=== PATIENT | female | born 1980 | race Caucasian/White ===

== ENCOUNTER 2018-01-10 21:47 | Emergency (ER) | payer BC ==
[~2018-01-10] VITALS: Ht 157.5 cm; Wt 83.9 kg
[~2018-01-10 21:47] MED LIST: BUPROPION XL300 MG PO; DHA100 MG PO; OMEPRAZOLE20 MG PO; PRENATAL TABLE1 EAC1 PO; ZANTAC150 MG PO
[2018-01-10] MEDS ORDERED: BACTRIM DS TAB1 EACH PO (22:13)
[2018-01-10] MEDS ORDERED: DEXAMETHASONE4 MG PO (22:13)
[2018-01-10] MEDS ORDERED: ACETAMINOPHEN-1 EAC1 PO (22:13)
== END 2018-01-10 22:50 | disposition home or self-care (01) ==
LOC: ED 21:47
DX: T81.4XXA Infection following a procedure, initial encounter (principal); J32.9 Chronic sinusitis, unspecified; Z88.1 Allergy status to other antibiotic agents; Z79.899 Other long term (current) drug therapy
CPT/HCPCS: 99282

== ENCOUNTER 2018-04-28 21:39 | Emergency (ER) | payer BC ==
[~2018-04-28] VITALS: Ht 157.5 cm; Wt 85.7 kg
[~2018-04-28 21:39] MED LIST changes: +ACETAMINOPHEN-1 EAC1 PO; +BACTRIM DS TAB1 EACH PO; +DEXAMETHASONE4 MG PO
[2018-04-28] MEDS ORDERED: CYCLOBENZAPRINE10 MG PO (21:45)
[2018-04-28] MEDS ORDERED: MOBIC7.5 MG PO (21:45)
--- OUTSIDE RECORDS SUMMARY | 2018-04-28 21:55 | XMS | Clinical Summary ---
Demographics + + + | Address | [address] | | | [place] [address] | + + + | Preferred Language | Unknown | + + + | Marital Status | Unknown | + + + | Anabaptist Affiliation | Unknown | + + + | Race | Unknown | + + + | Ethnic Group | Unknown | + + + Author + + + | Author | [employer] | + + + | Organization | [facility] | + + + | Address | Unknown | + + + | Phone | Unavailable | + + + Care Team Providers + +------+ + | Care Chief Accounting Officer Name | Role | Phone | + +------+ + PP | Unavailable | + +------+ + Allergies Not on File Current Medications Not on file Active Problems Not on file Social History + +-------+ +--------+------+ | Tobacco Use | Types | Packs/Day | Years | Date | | | | | Used | | + +-------+ +--------+------+ | Never Assessed | | | | | + +-------+ +--------+------+ + + + | Sex Assigned at | Date Recorded | | | | + + + | Not on file | | + + + Plan of Treatment Not on file Results Not on filefrom Last 3 Months"
--- OUTSIDE RECORDS SUMMARY | 2018-04-28 21:55 | XMS | Clinical Summary ---
Demographics + + + | Address | [address] | | | [place] [address] | + + + | Preferred Language | Unknown | + + + | Marital Status | Unknown | + + + | Muslim Affiliation | Unknown | + + + | Race | Unknown | + + + | Ethnic Group | Unknown | + + + Author + + + | Author | [employer] | + + + | Organization | [facility] | + + + | Address | Unknown | + + + | Phone | Unavailable | + + + Care Team Providers + +------+ + | Care Nuclear Fuels Research Engineer Name | Role | Phone | + [...]
[2018-04-28] MEDS ORDERED: AMOXICILLIN875 MG PO ×2 (22:04→22:07)
== END 2018-04-28 22:31 | disposition home or self-care (01) ==
LOC: ED 21:39
DX: H66.91 Otitis media, unspecified, right ear (principal); Z88.1 Allergy status to other antibiotic agents; Z79.899 Other long term (current) drug therapy
CPT/HCPCS: 99282

== ENCOUNTER 2021-10-13 20:16 | Emergency (ER) | payer OTHER ==
[~2021-10-13] VITALS: Ht 157.5 cm; Wt 99.8 kg
[~2021-10-13 20:16] MED LIST changes: +AMOXICILLIN875 MG PO; +CYCLOBENZAPRINE10 MG PO; +MOBIC7.5 MG PO
[2021-10-13] MEDS ORDERED: CITALOPRAM HBR10 MG PO (21:09)
== END 2021-10-14 00:03 | disposition home or self-care (01) ==
LOC: ED 20:16
DX: R10.11 Right upper quadrant pain (principal); R10.31 Right lower quadrant pain; M79.604 Pain in right leg; Z88.1 Allergy status to other antibiotic agents; Z79.899 Other long term (current) drug therapy
CPT/HCPCS: 36415; 74177; 80053; 81001; 83690; 84703; 85025; 93971; 99284-25

== ENCOUNTER 2022-06-29 06:55 | Day surgery (SDC) | payer OTHER ==
[~2022-06-29] VITALS: Ht 157.5 cm; Wt 98.6 kg
[~2022-06-29 06:55] MED LIST changes: +CITALOPRAM HBR10 MG PO
[2022-06-29] MEDS ORDERED: IBU600 MG PO (07:07)
--- NOTE | 2022-06-29 09:11 | NUR ---
06/29/22 0911 Carolina Brown 0901-PATIENT ARRIVED TO PACU ON 10L MASK NONAROUSABLE ORAL AIRWAY IN PLACE. PATIENTS JAW IS CLENCHED RN DOING JAW THRUST TO MAINTAIN OPEN AIRWAY. PADMINI MAGUIRE AT BEDSIDE. SR. IVF INFUSING. 0905- BP RETAKEN RN CONTINUING TO DO JAW THRUST PATIENT COUGHING HOB ELEVATED ORAL AIRWAY IN PLACE PADMINI MAGUIRE SUCTIONED PATIENTS MOUTH. JAW BECOMING LESS CLENCHED. PATIENTS MOUTH SUCTIONED. 0909-PATIENT AWAKE EYES OPEN MOVING ARMS FOLLOWING COMMANDS ORAL AIRWAY REMOVED. PATIENT COUGHED NONPRODUCTIVE. PLACED ON 6L MASK RR EVEN 100% PATIENT DOZES BACK TO SLEEP.
--- NOTE | 2022-06-29 10:14 | NUR ---
STEADY ON FEET WITH ONE PERSON STAND BY ASSIST FOR AMBULATION TO BR. REPORTS PAIN HAS DECREASED TO 4/10 LOWER ABDOMINAL CRAMPING. DENIES NAUSEA. REFUSES OFFER OF PRN MEDICATION FOR PAIN AT THIS POINT.
--- NOTE | 2022-07-03 18:21 | OR ---
[facility] [address] [place], [place] [address] Signed DATE OF OPERATION: 06/29/2022 SURGEON: Jo Mendez MD PREOPERATIVE DIAGNOSIS: Menometrorrhagia. POSTOPERATIVE DIAGNOSES: 1. Menometrorrhagia. 2. Endometrial polyps. PROCEDURE: Hysteroscopy, resection of polyps. ANESTHESIA: General, LMA. ESTIMATED BLOOD LOSS: Minimal. DRAINS: None. INDICATIONS AND FINDINGS: The patient is a 41-year-old female, who has been having abnormal bleeding over the past few months. Ultrasound could not really evaluate the uterus. Endometrial biopsy was impossible in the office. At the time of surgery, exam under anesthesia revealed her cervix to be high and in the patient's right vaginal fornix. The uterus itself sounded to 13 cm. The great majority of that appeared to be the cervix when the hysteroscopy was done. There were a few small polyps at the fundus. DESCRIPTION OF PROCEDURE: The patient was prepped and draped in the dorsal lithotomy position. Initially, a long weighted speculum was used in an attempt to see the cervix, this was quite difficult given the patient's size as well as the location of the cervix. The weighted speculum did not work well and the open-sided speculum was placed and with increased pressure at the vaginal fornix, the cervix was visualized and grasped on the anterior lip with a single-tooth tenaculum. Following this, the uterus was sounded to 13 cm. The endocervical canal was then dilated to a #8 dilator. MyoSure device was then placed. The speculum was then removed and the cavity evaluated. The great majority of the area Electronically Signed By: JO MENDEZ MD 07/03/22 182 PATIENT NAME: ELIZABETH LEMUS OPERATIVE REPORT DATE OF : 78 REPORT #: [id number] PHYSICIAN: JO MENDEZ MD PCP: JOZEF BOWER REPORT IS CONFIDENTIAL AND NOT TO BE RELEASED WITHOUT AUTHORIZATION [facility] [address] [place], [place] [address] Signed appeared to be the cervix, which was quite long. The fundus appeared to be fairly small with two small polyps. The remaining cavity appeared to be atrophic. The MyoSure Lite was introduced and the polyps were removed without difficulty. Following this, the instruments removed from the vagina. There was no ongoing bleeding from the tenaculum site. The sponge and needles were all correct. The patient was taken to the recovery room in good condition. Jo Mendze MD PJW/MODL /[id number] cc: Jozef Bower PA-C Copies: JOZEF BOWER ~ Electronically Signed By: JO MENDEZ MD 07/03/22 1821 PATIENT NAME: ELIZABETH LEMUS OPERATIVE REPORT DATE OF : 78 REPORT #: [id number] PHYSICIAN: JO MENDEZ MD PCP: JOZEF BOWER REPORT IS CONFIDENTIAL AND NOT TO BE RELEASED WITHOUT AUTHORIZATION
--- NOTE | 2022-07-04 17:20 | PATH ---
[facility] [address] [place], [place] [address] Signed SPECIMEN(S): A ENDOMETRIAL CURETTINGS WITH POLYP SPECIMEN SOURCE: A. ENDOMETRIAL CURETTINGS WITH POLYP CLINICAL HISTORY: Menometrorrhagia. Hysteroscopy DC. FINAL PATHOLOGIC DIAGNOSIS: Endometrium, curettage: - Fragments of weakly proliferative endometrium with glandular and stromal breakdown and features suggestive of a benign endometrial polyp; no hyperplasia or neoplasia identified. COMMENT: An immunohistochemical stain for P53 is performed and demonstrates wild type staining, supporting the above interpretation. BRP:[facility]:C2NR MICROSCOPIC EXAMINATION: Histologic sections of all submitted blocks are examined by light microscopy. These findings, together with the gross examination, support the pathologic diagnosis. GROSS DESCRIPTION: The specimen, labeled "KB, A," and designated on the requisition "EMC with polyps," is received in formalin and consists of a portion of red-brown soft tissue (2.0 x 1.0 x 0.2 cm in aggregate). The specimen is submitted entirely in cassette (A1). AC (under the direct supervision of a pathologist) The Gross Description was prepared using a voice recognition system. The report was reviewed for accuracy; however, sound-alike word errors, addition and/or deletions may occur. If there is any question about this report, please contact Client Services. ADDITIONAL NOTES: Immunohistochemical and/or in situ hybridization studies were performed on this case with the appropriate positive controls that react as expected. This test was developed and its performance characteristics determined by [facility]. It has not been cleared or approved by the U.S. Food and Drug Administration. The FDA has determined that PATIENT NAME: ELIZABETH LEMUS PATHOLOGY DATE OF : 78 REPORT #: [id number] PHYSICIAN: PRICILLA PARKS PCP: JOZEF BORGES REPORT IS CONFIDENTIAL AND NOT TO BE RELEASED WITHOUT AUTHORIZATION [facility] [address] [place] [place] [address] Signed such clearance or approval is not necessary. This test is used for clinical purposes. It should not be regarded as investigational or for research. [facility] is certified under the Clinical Laboratory Improvement Amendments of 1988 (CLIA) as qualified to perform high complexity clinical laboratory testing. This assay has not been validated for specimens that have been decalcified. PERFORMING LABORATORY: The technical component was performed by [facility], [address] [place] [address] (CLIA# [id number]). Professional interpretation was performed by [facility], [address] [address] (CLIA#: [id number]). Diagnostician: Zachariah Vinson MD Pathologist Electronically Signed 07/04/2022 Copies: ~ PATIENT NAME: ELIZABETH LEMUS PATHOLOGY DATE OF : 78 REPORT #: [id number] PHYSICIAN: PRICILLA PATHOLOGY PCP: JOZEF BORGES REPORT IS CONFIDENTIAL AND NOT TO BE RELEASED WITHOUT AUTHORIZATION
== END 2022-06-29 10:35 | disposition home or self-care (01) ==
LOC: DS 06:55
PROVIDERS: ATTEND Obstetrics & Gynecology
PROC: 0UDB8ZZ Extraction of Endometrium, Via Natural or Artificial Opening Endoscopic (ICD-10-PCS; principal; 2022-06-29 08:35)
DX: N92.1 Excessive and frequent menstruation with irregular cycle (principal); N84.0 Polyp of corpus uteri; I10 Essential (primary) hypertension
CPT/HCPCS: 00952; J1100; J1885; J2250; J2405; J2704; J2765; J3010; J7121